=== PATIENT | male | born 1950 | race Caucasian/White ===

== ENCOUNTER 2016-11-03 08:24 | Day surgery (SDC) | payer MEDICARE, MEDICAID ==
[~2016-11-03] VITALS: Ht 182.9 cm; Wt 116.0 kg
[~2016-11-03 08:24] MED LIST: ATENOLOL50 MG PO; FLOMAX DPS0.4 MG PO; FUROSEMIDE20 MG PO; MULTIVITAMINS1 EAC1 PO; POTASSIUM CHLO20 MEQ PO
== END 2016-11-03 12:36 | disposition home or self-care (01) ==
LOC: RAD.S 08:24 → EDSTATUS 10:00 → RAD.S 12:36
PROC: 0BBC3ZX Excision of Right Upper Lung Lobe, Percutaneous Approach, Diagnostic (ICD-10-PCS; principal; 2016-11-03)
DX: C34.11 Malignant neoplasm of upper lobe, right bronchus or lung (principal); I10 Essential (primary) hypertension; Z79.82 Long term (current) use of aspirin; Z79.899 Other long term (current) drug therapy; Z79.52 Long term (current) use of systemic steroids